=== PATIENT | male | born 1965 | race Caucasian/White ===

== ENCOUNTER 2024-06-18 08:56 | Emergency (ER) | payer BC ==
--- OUTSIDE RECORDS SUMMARY | 2024-06-18 09:00 | XMS REPORT | Continuity of Care Document ---
Author Name Unknown Address [address] [place] [address] [facility] Address [address] [place] [address] Care Team Providers Care Ledger Poster Name Role Phone Pcp, Patient Does Not Have A Primary Care Physic susanna DALTON DAMON Attending Clinician Unavailable Dalton Carter Attending Clinician [phone] Unknown, Attending Attending Clinician Unavailab annette Swan Attending Clinician Unavailable Carlos Attending Clinician Unavailable Nani Attending Clinician Unavailable Shawn Ott Attending Clinician [phone] Unknown, Attending Attending Clinician Unavailab SHAWN Johnson Attending Clinician Unavailab le Doctor Unassigned, [place] Attending Clinician U navailda Swan Admitting Clinician Unavailable Carlos Admitting Clinician Unavailable Nani Admitting Clinician Unavailable Payers Payer Name Policy Type Policy Number Effective Date Expirati on Date Source [place] OUT OF [place] [id number] 2006 00:00:00 [place] [id number] 2006 00:00:00 [place] [id number] 2006 00:00:00 Problems Condition Name Condition Details Condition Category Status Onset Date Resolution Date Last Treatment Date Treating Clinician Comments Source Multiple complicati ons due to type 2 diabetes mellitus Multiple Complicati ons Due to Type 2 Diabetes Mellitus Problem Active 10-31 00:00: 00 [facility] Colonoscop y declined Colonoscop y Declined Problem Active 10-31 00:00: 00 [facility] Allergies, Adverse Reactions, Alerts Allergy Name Allergy Type Status Severity Reaction(s) Onset Date Inactive Date Treating Clinician Comments Source NO KNOWN ALLERGIE S Drug Class Active [facility] Social History Social Habit Start Date Stop Date Quantity Comments Source [facility] identity [facility] Tobacco use and exposure 2023-05-03 00:00:00 2023-05-03 00:00:00 Smokeless tobacco non-user [facility] Alcohol intake 2023-05-03 00:00:00 2023-05-03 00:00:00 Lifetime non-drinker (finding) [facility] History of Social function 2023-05-03 00:00:00 2023-05-03 00:00:00 [facility] Alcoholic beverage intake 2023-05-03 00:00:00 2023-05-03 00:00:00 Lifetime non-drinker (finding) [facility] Sex assigned at 1965 00:00:00 1965 00:00:00 [facility] Smoking Status Start Date Stop Date Source Tobacco smoking consumption unknown [facility] Never smoked tobacco [facility] Medications Ordered Medication Name Filled Medication Name Start Date Stop Date Current Medication? Ordering Clinician Indication Dosage Frequency Signature (SIG) Comments Components Source cephALEXin 500 mg capsule 06-15 00:00: 00 06-26 04:59 :00 Yes [id number] 500mg Take 1 capsule by mouth 4 (four) times daily for 10 days. [facility] doxycycline hyclate 100 mg tablet 06-15 00:00: 00 06-26 04:59 :00 Yes [id number] 100mg Take 1 tablet by mouth in the morning and 1 tablet in the evening. Do all this for 10 days. [facility] amoxicillin 500 mg tablet 05-03 00:00: 00 05-14 04:59 :00 No [id number] 1000mg Take 2 tablets by mouth in the morning for 10 days. [facility] cholecalcif chicho (vitamin D3) 1,250 mcg (50,000 unit) capsule Take 1 capsule every week by oral route. cholecalcif chicho (vitamin D3) 1,250 mcg (50,000 unit) capsule Take 1 capsule every week by oral route. No cholecalci ferol (vitamin D3) 1,250 mcg (50,000 unit) capsule Take 1 capsule every week by oral route. [facility] glimepiride 4 mg tablet Take 1 tablet twice a day by oral route. glimepiride 4 mg tablet Take 1 tablet twice a day by oral route. No 1 BID glimepirid e 4 mg tablet Take 1 tablet twice a day by oral route. [facility] Humalog KwikPen (U-100) Insulin 100 unit/mL subcutaneou s Take sub q 20 units plus correction factor prior to meal tid TDD 60-75 units per day Humalog KwikPen (U-100) Insulin 100 unit/mL subcutaneou s Take sub q 20 units plus correction factor prior to meal tid TDD 60-75 units per day No Humalog KwikPen (U-100) Insulin 100 unit/mL subcutaneo us Take sub q 20 units plus correction factor prior to meal tid TDD 60-75 units per day [facility] lisinopril 20 mg tablet Take 1 tablet every day by oral route. lisinopril 20 mg tablet Take 1 tablet every day by oral route. No 1 Q1D lisinopril 20 mg tablet Take 1 tablet every day by oral route. [facility] metoprolol tartrate 50 mg tablet TAKE 1 TABLET BY MOUTH TWICE A DAY metoprolol tartrate 50 mg tablet TAKE 1 TABLET BY MOUTH TWICE A DAY No metoprolol tartrate 50 mg tablet TAKE 1 TABLET BY MOUTH TWICE A DAY [facility] [place] 3 [place] 3 No [place] 3 [facility] OneTouch Delica Lancets 30 gauge OneTouch Delica Lancets 30 gauge No OneTouch Delica Lancets 30 gauge [facility] OneTouch Delica Plus Lancet 33 gauge OneTouch Delica Plus Lancet 33 gauge No OneTouch Delica Plus Lancet 33 gauge [facility] OneTouch Ultra Blue Test Strip Take 1 strip twice a day by miscell. route. OneTouch Ultra Blue Test Strip Take 1 strip twice a day by miscell. route. No OneTouch Ultra Blue Test Strip Take 1 strip twice a day by miscell. route. [facility] OneTouch Ultra2 Meter OneTouch Ultra2 Meter No OneTouch Ultra2 Meter [facility] OneTouch Verio test strips for qid SBGM OneTouch Verio test strips for qid SBGM No OneTouch Verio test strips for qid SBGM [facility] simvastatin 20 mg tablet TAKE 1 TABLET DAILY AT BEDTIME simvastatin 20 mg tablet TAKE 1 TABLET DAILY AT BEDTIME No simvastati n 20 mg tablet TAKE 1 TABLET DAILY AT BEDTIME [facility] Synjardy XR 12.5 mg-1,000 mg tablet, extended release Take 2 tablets every day by oral route. Synjardy XR 12.5 mg-1,000 mg tablet, extended release Take 2 tablets every day by oral route. No 2 Q1D Synjardy XR 12.5 mg-1,000 mg tablet, extended release Take 2 tablets every day by oral route. [facility] Vitamin D Vitamin D No Vitamin D [facility] Xultophy 100/3.6 100 unit-3.6 mg/mL (3 mL) subcutaneou s insulin pen Xultophy 100/3.6 100 unit-3.6 mg/mL (3 mL) subcutaneou s insulin pen No Xultophy 100/3.6 100 unit-3.6 mg/mL (3 mL) subcutaneo us insulin pen [facility] Ozempic 1 mg/dose (4 mg/3 mL) subcutaneou s pen injector TAKE AFTER YOU COMPLETE THE SAMPLES AT LOWER DOSE. TAKE SUBCUTANEOU S 1 MG ONCE EVERY WEEK Ozempic 1 mg/dose (4 mg/3 mL) subcutaneou s pen injector TAKE AFTER YOU COMPLETE THE SAMPLES AT LOWER DOSE. TAKE SUBCUTANEOU S 1 MG ONCE EVERY WEEK No Ozempic 1 mg/dose (4 mg/3 mL) subcutaneo us pen injector TAKE AFTER YOU COMPLETE THE SAMPLES AT LOWER DOSE. TAKE SUBCUTANEO US 1 MG ONCE EVERY WEEK [facility] Tresiba FlexTouch U-200 insulin 200 unit/mL (3 mL) subcutaneou s pen Inject 42 units every day by subcutaneou s route. Tresiba FlexTouch U-200 insulin 200 unit/mL (3 mL) subcutaneou s pen Inject 42 units every day by subcutaneou s route. No 42unit( s) Q1D Tresiba FlexTouch U-200 insulin 200 unit/mL (3 mL) subcutaneo us pen Inject 42 units every day by subcutaneo us route. [facility] BD Zuleika 2nd Gen Pen Needle 32 gauge x 5/32" USE 2 TIMES PER DAY BD Zuleika 2nd Gen Pen Needle 32 gauge x 5/32" USE 2 TIMES PER DAY No BD Zuleika 2nd Gen Pen Needle 32 gauge x 5/32" USE 2 TIMES PER DAY [facility] Mounjaro 2.5 mg/0.5 mL subcutaneou s pen injector Inject 2.5 mg every week by subcutaneou s route as directed. Mounjaro 2.5 mg/0.5 mL subcutaneou s pen injector Inject 2.5 mg every week by subcutaneou s route as directed. No 2.5mg Q1W Mounjaro 2.5 mg/0.5 mL subcutaneo us pen injector Inject 2.5 mg every week by subcutaneo us route as directed. [facility] Immunizations Ordered Immunization Name Filled Immunization Name Date Status Comments Source Tdap Tdap Unknown Completed [facility] Vital Signs Vital Name Observation Time Observation Value Comments S ource Systolic blood pressure 2024-06-15 15:17:00 107 mm[Hg] [facility] Diastolic blood pressure 2024-06-15 15:17:00 71 mm[Hg] [facility] Heart rate 2024-06-15 15:17:00 66 /min [facility] Body temperature 2024-06-15 15:17:00 36.56 [place] [facility] Respiratory rate 2024-06-15 15:17:00 16 /min [facility] Body weight 2024-06-15 15:17:00 133[facility]358 [facility] BMI 2024-06-15 15:17:00 38.79 kg/m2 [facility] Oxygen saturation in Arterial blood by Pulse oximetry 2024-06-15 15:17:00 99 /min [facility] Height 2024-05-21 00:00:00 72 [in_i] [facility] BP Systolic 2024-05-21 00:00:00 127 mm[Hg] [facility] BP Diastolic 2024-05-21 00:00:00 84 mm[Hg] [facility] Body Weight 2024-05-21 00:00:00 296.4 [lb_av] [facility] BMI (Body Mass Index) 2024-05-21 00:00:00 40.2 kg/m2 [facility] Height 2023-12-26 00:00:00 72 [in_i] [facility] BMI (Body Mass Index) 2023-12-26 00:00:00 39.6 kg/m2 [facility] Body Weight 2023-12-26 00:00:00 292 [lb_av] [facility] BP Systolic 2023-12-26 00:00:00 118 mm[Hg] [facility] BP Diastolic 2023-12-26 00:00:00 72 mm[Hg] [facility] Body Weight 2023-08-22 00:00:00 286 [lb_av] [facility] BP Systolic 2023-08-22 00:00:00 126 mm[Hg] [facility] Height 2023-08-22 00:00:00 72 [in_i] [facility] BP Diastolic 2023-08-22 00:00:00 84 mm[Hg] [facility] BMI (Body Mass Index) 2023-08-22 00:00:00 38.8 kg/m2 [facility] Systolic blood pressure 2023-05-03 18:15:00 121 mm[Hg] [facility] Diastolic blood pressure 2023-05-03 18:15:00 79 mm[Hg] [facility] Heart rate 2023-05-03 18:15:00 64 /min [facility] Body temperature 2023-05-03 18:15:00 36.94 [place] [facility] Respiratory rate 2023-05-03 18:15:00 17 /min [facility] Body height 2023-05-03 18:15:00 185.4 cm [facility] Body weight 2023-05-03 18:15:00 130.999 kg [facility] BMI 2023-05-03 18:15:00 38.10 kg/m2 [facility] Oxygen saturation in Arterial blood by Pulse oximetry 2023-05-03 18:15:00 95 /min [facility] BP Diastolic 2023-04-04 00:00:00 78 mm[Hg] [facility] Height 2023-04-04 00:00:00 72 [in_i] [facility] BMI (Body Mass Index) 2023-04-04 00:00:00 38.5 kg/m2 [facility] BP Systolic 2023-04-04 00:00:00 138 mm[Hg] [facility] Body Weight 2023-04-04 00:00:00 284 [lb_av] [facility] BP Diastolic 2022-12-13 00:00:00 88 mm[Hg] [facility] Height 2022-12-13 00:00:00 72 [in_i] [facility] BMI (Body Mass Index) 2022-12-13 00:00:00 39.9 kg/m2 [facility] BP Systolic 2022-12-13 00:00:00 140 mm[Hg] [facility] Body Weight 2022-12-13 00:00:00 294 [lb_av] [facility] BP Diastolic 2022-08-10 00:00:00 80 mm[Hg] [facility] Height 2022-08-10 00:00:00 72 [in_i] [facility] BMI (Body Mass Index) 2022-08-10 00:00:00 38.5 kg/m2 [facility] BP Systolic 2022-08-10 00:00:00 130 mm[Hg] [facility] Body Weight 2022-08-10 00:00:00 284 [lb_av] [facility] BP Diastolic 2022-04-13 00:00:00 84 mm[Hg] [facility] Height 2022-04-13 00:00:00 72 [in_i] [facility] BMI (Body Mass Index) 2022-04-13 00:00:00 38.4 kg/m2 [facility] BP Systolic 2022-04-13 00:00:00 130 mm[Hg] [facility] Body Weight 2022-04-13 00:00:00 283 [lb_av] [facility] BP Diastolic 2021-08-31 00:00:00 84 mm[Hg] [facility] Height 2021-08-31 00:00:00 72 [in_i] [facility] BMI (Body Mass Index) 2021-08-31 00:00:00 38.8 kg/m2 [facility] BP Systolic 2021-08-31 00:00:00 126 mm[Hg] [facility] Body Weight 2021-08-31 00:00:00 286 [lb_av] [facility] BP Diastolic 2021-05-12 00:00:00 82 mm[Hg] [facility] Height 2021-05-12 00:00:00 72 [in_i] [facility] BMI (Body Mass Index) 2021-05-12 00:00:00 39.7 kg/m2 [facility] BP Systolic 2021-05-12 00:00:00 134 mm[Hg] [facility] Body Weight 2021-05-12 00:00:00 293 [lb_av] [facility] BP Diastolic 2021-01-19 00:00:00 78 mm[Hg] [facility] Height 2021-01-19 00:00:00 72 [in_i] [facility] BMI (Body Mass Index) 2021-01-19 00:00:00 39.2 kg/m2 [facility] BP Systolic 2021-01-19 00:00:00 118 mm[Hg] [facility] Body Weight 2021-01-19 00:00:00 289 [lb_av] [facility] BP Diastolic 2020-09-29 00:00:00 78 mm[Hg] [facility] Height 2020-09-29 00:00:00 72 [in_i] [facility] BMI (Body Mass Index) 2020-09-29 00:00:00 39.3 kg/m2 [facility] BP Systolic 2020-09-29 00:00:00 120 mm[Hg] [facility] Body Weight 2020-09-29 00:00:00 290 [lb_av] [facility] Height 2020-05-12 00:00:00 72 [in_i] [facility] BMI (Body Mass Index) 2020-05-12 00:00:00 39.5 kg/m2 [facility] Body Weight 2020-05-12 00:00:00 291.4 [lb_av] [facility] BP Diastolic 2020-01-07 00:00:00 72 mm[Hg] [facility] Height 2020-01-07 00:00:00 72 [in_i] [facility] BMI (Body Mass Index) 2020-01-07 00:00:00 39.1 kg/m2 [facility] BP Systolic 2020-01-07 00:00:00 118 mm[Hg] [facility] Body Weight 2020-01-07 00:00:00 288 [lb_av] [facility] BP Diastolic 2019-08-20 00:00:00 78 mm[Hg] [facility] Height 2019-08-20 00:00:00 72 [in_i] [facility] BMI (Body Mass Index) 2019-08-20 00:00:00 38 kg/m2 [facility] BP Systolic 2019-08-20 00:00:00 116 mm[Hg] [facility] Body Weight 2019-08-20 00:00:00 280.1 [lb_av] [facility] BP Diastolic 2019-04-30 00:00:00 82 mm[Hg] [facility] Height 2019-04-30 00:00:00 72 [in_i] [facility] BMI (Body Mass Index) 2019-04-30 00:00:00 38.4 kg/m2 [facility] BP Systolic 2019-04-30 00:00:00 122 mm[Hg] [facility] Body Weight 2019-04-30 00:00:00 283.3 [lb_av] [facility] BP Diastolic 2018-11-27 00:00:00 80 mm[Hg] [facility] Height 2018-11-27 00:00:00 72 [in_i] [facility] BMI (Body Mass Index) 2018-11-27 00:00:00 39.1 kg/m2 [facility] BP Systolic 2018-11-27 00:00:00 120 mm[Hg] [facility] Body Weight 2018-11-27 00:00:00 288 [lb_av] [facility] BP Diastolic 2018-11-06 00:00:00 80 mm[Hg] [facility] Height 2018-11-06 00:00:00 72 [in_i] [facility] BMI (Body Mass Index) 2018-11-06 00:00:00 39.1 kg/m2 [facility] BP Systolic 2018-11-06 00:00:00 124 mm[Hg] [facility] Body Weight 2018-11-06 00:00:00 288 [lb_av] [facility] Practice Procedures Procedure Date / Time Performed Performing Clinicia n Source POCT MOLECULAR STREP 2023-05-03 18:19:00 Unknown, [place] ASSIGNMENT OF BENEFITS 2023-05-03 18:07:59 Docto r Unassigned, [place] [facility] Encounters Start Date/Time End Date/Time Encounter Type Admission Type Attending [facility] Care Department Encounter ID Source 2024-06-15 09:40:00 2024-06-15 10:30:51 Outpatient R DALTON DAMON [facility] [id number] [facility] 2024-06-15 09:40:00 2024-06-15 10:30:51 Urgent Care Dalton Damon Unknown, Attending [facility] LUCERO ESPINOZA[facility] [id number] [facility] 2024-05-21 00:00:00 2024-05-21 00:00:00 Fernando Aguero MD: [id number] [facility], [address], [place] [address] , Ph. VFP [facility] - [place] - [facility] [id number] [facility] 2024-01-20 00:00:00 2024-01-20 00:00:00 Outpatient Siddiqi_Z_H OU_MD VFP VFP [id number] [facility] 2023-12-26 00:00:00 2023-12-26 00:00:00 Outpatient Carter_C_HO U_MD VFP VFP [id number] [facility] 2023-12-26 00:00:00 2023-12-26 00:00:00 Fernando Aguero MD: [id number] [facility], [address], [place] [id number] , Ph. [phone] VFP [facility] [place] [facility] [id number] [facility] 2023-12-23 00:00:00 2023-12-23 00:00:00 Outpatient Anderson_C_ DNU VFP VFP [id number] [facility] 2023-09-06 00:00:00 2023-09-06 00:00:00 Outpatient Carter_C_HO U_MD VFP VFP [id number] [facility] 2023-08-22 00:00:00 2023-08-22 00:00:00 Fernando Aguero MD: [id number] [facility], [address], [place] [id number] , Ph. [phone] VFP [facility] [place] [facility] [id number] [facility] 2023-05-03 13:00:00 2023-05-03 13:20:00 Urgent Care Shawn Dias, Attending [facility] LUCERO ESPINOZA[facility] [id number] [facility] 2023-05-03 13:00:00 2023-05-03 13:00:00 Outpatient R SHAWN DIAS [facility] [id number] [facility] 2023-05-03 00:00:00 2023-05-03 00:00:00 Orders Only Doctor Unassigned, [place] [facility] [id number] [facility] 2023-04-19 00:00:00 2023-04-19 00:00:00 Outpatient Carter_C_HO U_MD VFP VFP [id number] [facility] 2023-04-19 00:00:00 2023-04-19 00:00:00 Outpatient Carter_C_HO U_MD VFP VFP [id number] [facility] 2023-04-07 00:00:00 2023-04-07 00:00:00 Outpatient Carter_C_HO U_MD VFP VFP [id number] [facility] 2023-04-04 00:00:00 2023-04-04 00:00:00 Outpatient Carter_C_HO U_MD VFP VFP [id number] [facility] 2023-04-04 00:00:00 2023-04-04 00:00:00 Fernando Aguero MD: [id number] [address], [place] [address] , Ph. VFP [place] - [facility] - [place] [facility] [id number] [facility] 2023-01-01 00:00:00 2023-01-01 00:00:00 Outpatient Carter_C_HO U_MD VFP VFP [id number] [facility] 2022-12-13 00:00:00 2022-12-13 00:00:00 Outpatient Carter_C VFP VFP [id number] [facility] 2022-12-13 00:00:00 2022-12-13 00:00:00 Fernando Aguero MD: [id number], [address], [place] [address] , Ph. VFP [place] - [facility] - [place] - _Radha Medrano [id number] [facility] 2022-12-10 00:00:00 2022-12-10 00:00:00 Outpatient Anderson_C_ DNU VFP VFP [id number] [facility] 2022-12-10 00:00:00 2022-12-10 00:00:00 Outpatient Anderson_C_ DNU VFP VFP [id number] [facility] 2022-12-10 00:00:00 2022-12-10 00:00:00 Outpatient Anderson_C_ DNU VFP VFP [id number] [facility] 2022-12-10 00:00:00 2022-12-10 00:00:00 Outpatient Anderson_C_ DNU VFP VFP [id number] [facility] 2022-12-10 00:00:00 2022-12-10 00:00:00 Outpatient Anderson_C_ DNU VFP VFP [id number] [facility] 2022-12-10 00:00:00 2022-12-10 00:00:00 Outpatient Anderson_C_ DNU VFP VFP [id number] [facility] 2022-12-10 00:00:00 2022-12-10 00:00:00 Outpatient Anderson_C_ DNU VFP VFP [id number] [facility] 2022-12-10 00:00:00 2022-12-10 00:00:00 Outpatient Anderson_C_ DNU VFP VFP [id number] [facility] 2022-12-10 00:00:00 2022-12-10 00:00:00 Outpatient Anderson_C_ DNU VFP VFP [id number] [facility] 2022-12-10 00:00:00 2022-12-10 00:00:00 Outpatient Anderson_C_ DNU VFP VFP [id number] [facility] 2022-08-10 00:00:2022-08-10 00:00:00 Outpatient Anderson_C_ DNU VFP VFP [id number] [facility] 2022-08-10 00:00:00 2022-08-10 00:00:00 Outpatient Anderson_C_ DNU VFP VFP [id number] [facility] 2022-08-10 00:00:00 2022-08-10 00:00:00 Outpatient Anderson_C_ DNU VFP VFP [id number] [facility] 2022-08-10 00:00:00 2022-08-10 00:00:00 Outpatient Anderson_C_ DNU VFP VFP [id number] [facility] 2022-08-10 00:00:00 2022-08-10 00:00:00 Fernando gAuero MD: [id number] [facility], [address], [place] [address] , Ph. V[place] - [facility] - [place] [facility] [id number] [facility] 2022-04-13 00:00:00 2022-04-13 00:00:00 Fernando Aguero MD: [id number] [facility], [address], [place] [address] , Ph. Anderson_C_ DNU VFP [facility] [employer] [id number] [facility] 2021-12-23 09:08:00 2021-12-23 09:08:00 Outpatient Carter_C VFP VFP [id number] [facility] 2021-09-08 06:46:00 2021-09-08 06:46:00 Outpatient Anderson_C_ DNU VFP VFP [id number] [facility] 2021-08-31 00:00:00 2021-08-31 00:00:00 Fernando Aguero MD: [address] [facility], [address], [place] [address] , Ph. Carter_C VFP [place] - [facility] - [facility] [id number] [facility] 2021-05-16 08:53:00 2021-05-16 08:53:00 Outpatient Anderson_C_ DNU VFP VFP [id number] [facility] 2021-05-12 00:00:00 2021-05-12 00:00:00 Fernando Aguero MD: [id number] [facility] [address], [place] [address] , Ph. Carter_C VFP [place] - [facility] [place] [id number] [facility] 2021-02-04 01:33:00 2021-02-04 01:33:00 Outpatient Anderson_C VFP VFP [id number] [facility] 2021-01-24 08:08:00 2021-01-24 08:08:00 Outpatient Carter_C VFP VFP [id number] [facility] 2021-01-19 00:00:00 2021-01-19 00:00:00 Fernando Aguero MD: [id number] [facility], [address], [place] [address] , Ph. Anderson_C VFP [place] - [facility] - [facility] ([place] [address] [facility] 2020-10-01 01:37:00 2020-10-01 01:37:00 Outpatient Carter_C VFP VFP [id number] [facility] 2020-09-29 00:00:00 2020-09-29 00:00:00 Fernando Aguero MD: [id number] [facility], [address], [place] [address] , Ph. Anderson_C VFP [place] - [facility] - [facility] ([place] [address] [facility] 2020-05-24 01:27:00 2020-05-24 01:27:00 Outpatient Anderson_C VFP VFP [id number] [facility] 2020-05-13 04:52:2020-05-13 04:52:00 Outpatient Carter_C VFP VFP [id number] [facility] 2020-05-12 00:00:00 2020-05-12 00:00:00 Fernando Aguero MD: [id number] [facility] [address], [address], [place] [address] , Ph. Anderson_C VFP [place] - [facility] - [facility] ([place] [id number] [facility] 2020-05-09 05:17:00 2020-05-09 05:17:00 Outpatient Anderson_C VFP VFP [id number] [facility] 2020-03-28 12:30:00 2020-03-28 12:30:00 Outpatient Anderson_C VFP VFP [id number] [facility] 2020-01-29 01:31:00 2020-01-29 01:31:00 Outpatient Anderson_C VFP VFP [id number] [facility] 2020-01-16 10:47:00 2020-01-16 10:47:00 Outpatient Carter_C VFP VFP [id number] [facility] 2020-01-14 02:14:00 2020-01-14 02:14:00 Outpatient Carter_C VFP VFP [id number] [facility] 2020-01-07 00:00:00 2020-01-07 00:00:00 Fernando Aguero MD: [address] [facility] [address], [address], [place] [address] , Ph. Anderson_C VFP [place] - [facility] - [facility] ([place] [id number] [facility] 2019-08-23 02:56:00 2019-08-23 02:56:00 Outpatient Carter_C VFP VFP [id number] [facility] 2019-08-20 00:00:00 2019-08-20 00:00:00 Fernando Aguero MD: [id number] [facility] [address], [address], [place] [address] , Ph. VFP [place] - [facility] [id number] [facility] 2019-04-30 00:00:00 2019-04-30 00:00:00 Fernando Aguero MD: [address] [facility] [address], [address], [place] [address] , Ph. [facility] - [place] [id number] [facility] 2018-11-27 00:00:00 2018-11-27 00:00:00 Yasemin Schaeffer MD: [address], [address], [place] [address] , Ph. [facility] - [place] [id number] [facility] 2018-11-06 00:00:00 2018-11-06 00:00:00 Fernando Aguero MD: [address] [facility] [address], [address], [place] [address] , Ph. [facility] - [place] [id number] [facility] 2018-10-31 00:00:00 2018-10-31 00:00:00 Yasemin Schaeffer MD: [address], [address], [place] [address] , Ph. [facility] - [facility] [id number] [facility] Results Test Description Test Time Test Comments Results Result Co mments Source [facility] [Mass/volume] in Capillary [id number] 13:39:29* Test Item Value Reference Range Interpretation Comme nts Blood Glucose: mg/dl (test c ode = Blood Glucose: mg/dl) 138 [facility] [Mass/volume] in Capillary [id number] 16:03:52* Test Item Value Reference Range Interpretation Comme nts Blood Glucose: mg/dl (test c ode = Blood Glucose: mg/dl) 126 [facility] PracticePOCT MOLECULAR [id number] 18:23:39* Test Item Value Reference Range Interpretation Comme nts POCT Molecular Strep (test c ode = 43103-2) Positive Negative A Lab Interpretation (test cod e = 25263-1) Abnormal [facility] in Capillary blood 2023-04-04 14:30:55* Test Item Value Reference Range Interpretation Comme nts Blood Glucose: mg/dl (test c ode = Blood Glucose: mg/dl) 142 [facility] [Mass/volume] in Capillary [id number] 13:54:51* Test Item Value Reference Range Interpretation Comme nts Blood Glucose: mg/dl (test c ode = Blood Glucose: mg/dl) 120 [facility] [Mass/volume] in Capillary [id number] 11:35:40* Test Item Value Reference Range Interpretation Comme nts Blood Glucose: mg/dl (test c ode = Blood Glucose: mg/dl) 169 [facility] [Mass/volume] in Capillary [id number] 14:34:35* Test Item Value Reference Range Interpretation Comme nts Blood Glucose: mg/dl (test c ode = Blood Glucose: mg/dl) 111 [facility] Differential panel - [id number] 09:54:00 * Test Item Value Reference Range Interpretation Comme nts WBC (test code = WBC) 9.62 x10*3/?L 4.23-9.07 H RBC (test code = RBC) 5.34 10*12/L 4.63-6.08 hemoglobin (test code = hemoglobin) 17.00 g/dL 13.70-17.50 hematocrit (test code = hematocrit) 51.0 % 40.1-51.0 MCV (test code = MCV) 95.5 fL 80.0-100.0 MCH (test code = MCH) 31.8 pg 25.7-32.2 MCHC (test code = MCHC) 33.3 g/dL 32.3-36.5 RDW-SD (test code = RDW-SD) 44.4 fL 35.1-43.9 H platelet count (test code = platelet count) 269.0 k/uL 163.0-337.0 MPV (test code = MPV) 9.8 fL 7.5-11.5 neut% (test code = neut%) 63.9 % 34.0-67.9 lymph% (test code = lymph%) 26.5 % 21.8-53.1 mon% (test code = mon%) 8.7 % 5.3-12.2 eos% (test code = eos%) 0.7 % 0.8-7.0 L baso% (test code = baso%) 0.2 % 0.2-1.2 neut# (test code = neut#) 6.1 x10*3/?L 1.8-5.4 H lymph# (test code = lymph#) 2.6 x10*3/?L 1.3-3.6 mon# (test code = mon#) 0.8 x10*3/?L 0.3-0.8 eos# (test code = eos#) 0.07 x10*3/?L 0.04-0.54 baso# (test code = baso#) 0.02 x10*3/?L 0.01-0.08 [facility] - Serum or [id number] 08:22:00* Test Item Value Reference Range Interpretation Comme nts HDL (test code = HDL) 35 mg/dL 40-60 L triglyceride (test code = triglyceride) 88 mg/dL 0-149 VLDL calc. (test code = VLDL calc.) 18 mg/dL cholesterol/HDL ratio (test code = cholesterol/HDL ratio) 3.1 mg/dL non-HDL cholesterol calc. (t est code = non-HDL cholesterol calc.) 72 mg/dL 0-160 cholesterol (test code = cholesterol) 107 mg/dL 0-199 Cholesterol in LDL [Mass/vol ume] in Serum or Plasma (test code = 2089-1) 54 mg/dL 0-130 [facility] - Serum or Plasma 2018-10-31 18:16:00* Test Item Value Reference Range Interpretation Comme nts ALT (test code = ALT) 28 U/L 0-55 AST (test code = AST) 19 U/L 5-34 BUN (test code = BUN) 13.7 mg/dL 8.4-25.7 alk phos (test code = alk phos) 90 unit/L 40-150 glucose (test code = glucose) 136 mg/dL 70-99 H albumin (test code = albumin) 4.2 g/dL 3.5-5.0 creatinine (test code = creatinine) 0.94 mg/dL 0.72-1.25 eGFR non- (t est code = eGFR non-) >60 total bilirubin (test code = total bilirubin) 0.9 mg/dL 0.2-1.2 eGFR - (sheng t code = eGFR - ) >60 sodium (test code = sodium) 139 mEq/L 136-145 potassium (test code = potassium) 4.8 mEq/L 3.5-5.1 chloride (test code = chloride) 102 mmol/L 98-107 total protein (test code = t otal protein) 7.3 g/dL 6.4-8.3 calcium (test code = calcium) 10.0 mg/dL 8.4-10.2 CO2 (test code = CO2) 27.3 mmol/L 22.0-29.0 anion gap (test code = anion gap) 10 calc [facility], serum or [id number] 18:16:00* Test Item Value Reference Range Interpretation Comme [facility] PSA, total (test code = PSA, total) 0.21 NG/mL 0.00-4.00 [facility] A1c/Hemoglobin.total in [id number] 17:48:00* Test Item Value Reference Range Interpretation Comme nts Hemoglobin A1c/Hemoglobin.to bull in Blood (test code = 4548-4) 8.0 % 1.0-5.7 H average blood glucose (test code = average blood glucose) 183 mg/dL [facility]
[2024-06-18 09:44] LABS: Absolute Eosinophils 0.1 K/uL (0-0.5); Absolute Lymphocytes (CBC) 1.8 K/uL (0.7-4.9); Absolute Monocytes 1.5 K/uL (0.1-1.3); Absolute Neutrophil 10.8 K/uL (1.8-8.0); Basophils % 0.3 % (0-1.3); Eosinophils % 0.6 % (0-4.4); Hematocrit 44.3 % (39.6-49.0); Hemoglobin 14.8 g/dL (13.6-17.9); Lymphocytes % 12.8 % (15.3-44.8); MCH 32.1 pg (27.0-35.0); MCHC 33.4 g/dL (32.0-36.0); MPV 6.9 fL (7.6-11.3); Monocytes % 10.4 % (3.3-12.3); Neutrophils % 75.9 % (41.7-73.7); Platelets 325 thou/uL (152-406); RBC Red Blood Cell Count 4.62 M/uL (4.33-5.43); Red Cell Distribution Width 13.2 % (12.1-15.2)
[2024-06-18 10:04] LABS: ALT/SGPT 17 U/L (16-61); Albumin/Globulin Ratio 0.7 (1.1-1.8); Alkaline Phosphatase 84 U/L (45-117); Anion Gap 5.8 mEq/L (5.0-15.0); BUN Blood Urea Nitrogen 20 mg/dL (7-18); Bicarbonate 32 mEq/L (21-32); Bilirubin Total 0.6 mg/dL (0.2-1.0); Globulin 4.4 g/dL (2.3-3.5); Glomerular Filtration Rate 89 ml/min (=/>90); Glucose Level 119 mg/dL (74-106); Potassium 4.8 mEq/L (3.5-5.1); Protein, Total 7.4 g/dL (6.4-8.2); Sodium Level 137 mEq/L (136-145)
[2024-06-18 10:12] LABS: AST/SGOT < 10 U/L (15-37)
[2024-06-18] MEDS ORDERED: MORPHINE 4 MG/ML SYR ONE (10:44)
[2024-06-18] MEDS ORDERED: ONDANSETRON 4 MG/2 ML VIAL ONE (10:44)
--- NOTE | 2024-06-18 10:46 | RAD REPORT ---
EXAM DESCRIPTION: CT - Pelvis W/Cont - 06/18/2024 10:25 am CLINICAL HISTORY: r/o perirectal abscess COMPARISON: No comparisons TECHNIQUE: CT scan of the pelvis was obtained without IV contrast. All CT scans are performed using dose optimization technique as appropriate and may include automated exposure control or mA/KV adjus tment according to patient size. FINDINGS: 6 cm x 3.1 cm x 4 cm fluid collection at the left medial gluteal cleft which is partially loculated and most consistent with a developing abscess. Overlying skin thickening may represent cell ulitis. No definite involvement of the rectum or anus to suggest fistula. Partial ankylosis of the le ft SI joint. IMPRESSION: Left buttocks fluid collection measuring 6 cm in maximal dimension presumably represents a developing abscess. No evidence of a perianal or perirectal fistula though CT is less sensitive th an MRI for detecting/evaluating fistulas.
[2024-06-18] MEDS ORDERED: LIDOCAINE 2% W/EPI 1:200,000 MPF 20 ML VIAL IM ONE (10:54)
[2024-06-18] MEDS ORDERED: FENTANYL CITR 100 MCG/2 ML ONE (11:00)
--- NOTE | 2024-06-18 11:26 | EDPHYS ---
Physician Documentation [facility] Name: Raheel Llanes Age: 59 yrs Sex: Male : 1965 Arrival Date: 06/18/2024 Time: 08:56 Bed 6 Private MD: ED Physician Brandon Diallo HPI: 06/18 09:14 This 59 yrs old Male presents to ER via Unassigned with complaints of Abscess. rt 09:14 Patient presents to the ED with an abscess to the buttocks for about a week. Was rt started on doxycycline, Keflex by an urgent care on . States that has significantly worsened since then. Denies fever, chills, acute complaints, symptoms are moderate in severity, no other aggravating or elevating factors.. Historical: - Allergies: 09:21 No Known Allergies; dd2 - Home Meds: 09:49 lisinopril 20 mg Oral tablet 1 tab once for hypertension [Active]; metoprolol tartrate dd2 50 mg Oral tablet 2 times per day [Active]; glimepiride 4 mg Oral tablet 1 tab 2 times per day for type 2 diabetes mellitus [Active]; Synjardy 12.5-1,000 mg oral tablet 1 tab 2 times per day for type 2 diabetes mellitus [Active]; simvastatin 20 mg Oral tablet 1 tab daily [Active]; Humalog U-100 Insulin 100 unit/mL Sub-Q cartridge 15 units 3 times per day for type 2 diabetes mellitus [Active]; Tresiba U-100 Insulin 100 unit/mL subcutaneous solution 40 units daily [Active]; cephalexin 500 mg Oral capsule 1 cap 4 times per day [Active]; doxycycline hyclate 100 mg Oral capsule 1 cap 2 times per day [Active]; - PMHx: 09:21 Hypertensive disorder; Diabetes mellitus; Hypercholesterolemia; dd2 - Immunization history:: Adult Immunizations up to date. - Infectious Disease History:: Denies. - Family history:: not pertinent. - Social history:: Smoking status: Patient denies any tobacco usage or history of. ROS: 09:14 Constitutional: Negative for fever, chills, and weight loss, Cardiovascular: Negative rt for chest pain, palpitations, and edema, Respiratory: Negative for shortness of breath, cough, wheezing, and pleuritic chest pain, Abdomen/GI: Negative for abdominal pain, nausea, vomiting, diarrhea, and constipation, Neuro: Negative for headache, weakness, numbness, tingling, and seizure, 09:14 Skin: Positive for abscess, cellulitis, Exam: 09:14 Constitutional: This is a well developed, well nourished patient who is awake, alert, rt and in no acute distress. Head/Face: Normocephalic, atraumatic. Chest/axilla: Normal chest wall appearance and motion. Nontender with no deformity. No lesions are appreciated. Cardiovascular: Regular rate and rhythm with a normal S1 and S2. No gallops, murmurs, or rubs. Normal PMI, no JVD. No pulse deficits. Respiratory: Lungs have equal breath sounds bilaterally, clear to auscultation and percussion. No rales, rhonchi or wheezes noted. No increased work of breathing, no retractions or nasal flaring. Abdomen/GI: Soft, non-tender, with normal bowel sounds. No distension or tympany. No guarding or rebound. No evidence of tenderness throughout. MS/ Extremity: Pulses equal, no cyanosis. Neurovascular intact. Full, normal range of motion. Neuro: Awake and alert, GCS 15, oriented to person, place, time, and situation. Cranial nerves II-XII grossly intact. Motor strength 5/5 in all extremities. Sensory grossly intact. Cerebellar exam normal. Normal gait. 09:14 Skin: Abscess noted to the gluteal Cleft, mostly on the left side, somewhat crossing over midline. Fluctuance extends to the anal verge area of fluctuance is about 7 cm. Vital Signs: 09:17 BP 131 / 62; Pulse 75; Resp 16; Temp 97.7; Pulse Ox 98% ; dd2 10:36 BP 112 / 68; Pulse 71; Resp 17 S; Pulse Ox 97% on R/A; kc6 11:39 BP 120 / 70; Pulse 85; Resp 17 S; Pulse Ox 98% on R/A; kc6 Procedures: 11:36 I \T\ D: Incision and drainage was performed for an abscess of the left buttocks Prepped rt with Betadine, Anesthetized with ml's 2% Lidocaine with epinephrine. 2 ml's 2% Lidocaine with epinephrine. Incised with #11 blade. Drained large amount purulent fluid. Packed with iodoform gauze, Dressing: sterile 4x4 gauze, the patient tolerated the procedure well. MDM: 09:07 Patient medically screened. rt 11:36 Differential diagnosis: Cutaneous abscess, perirectal abscess, perianal abscess. Data rt reviewed: vital signs, nurses notes, lab test result(s), radiologic studies. I considered the following discharge prescriptions or medication management in the emergency department Medications were administered in the Emergency Department. See MAR. Independent interpretation of the following test(s) in the Emergency Department CT Scan: My interpretation is Abscess seen on my interpretation of CT scan images. Care significantly affected by the following chronic conditions: Diabetes. Counseling: I had a detailed discussion with the patient and/or guardian regarding the historical points, exam findings, and any diagnostic results supporting the discharge/admit diagnosis, lab results, radiology results, the need for outpatient follow up, to return to the emergency department if symptoms worsen or persist or if there are any questions or concerns that arise at home. Response to treatment: the patient's symptoms have markedly improved after treatment. 11:39 ED course: Patient is currently on Keflex, doxycycline prior to arrival, will continue rt with his antibiotic.. 06/18 09:13 Order name: CBC with Diff; Complete Time: 10:13 rt 06/18 09:13 Order name: CMP; Complete Time: 10:13 rt 06/18 09:13 Order name: CT Pelvis w cont; Complete Time: 10:46 rt 06/18 10:47 Order name: I\T\D Setup; Complete Time: 10:51 rt Administered Medications: 10:50 Drug: morphine IVP or IV 4 mg IVP once over 4 mins Route: IVP; Infused Over: 4 mins; kc6 Site: left antecubital; 10:50 Drug: Ondansetron IVP 4 mg IVP once; over 2 minutes Route: IVP; Site: left antecubital; [facility] 11:00 Drug: Lidocaine-Epinephrine Infiltration -2 % (1:100,000) 10 ml Infiltration once; to kc6 bedside Route: Infiltration; 11:00 Drug: fentaNYL (PF) IVP 50 mcg IVP once Route: IVP; Site: left antecubital; [facility] 11:39 Follow up: Response: No adverse reaction; Pain is unchanged, physician notified [facility] 11:39 Drug: Frederick PO 10 mg-325 mg 1 tabs PO once Route: PO; [facility] Disposition Summary: 06/18/24 11:26 Discharge Ordered Notes: Location: Home rt Problem: new rt Symptoms: have improved rt Condition: Stable rt Diagnosis - Cutaneous abscess to buttock rt Followup: rt - With: Private Physician - When: 5 - 6 days - Reason: Discharge Instructions: - Discharge Summary Sheet rt - Skin Abscess rt Forms: - Medication Reconciliation Form rt - Antibiotic Education rt - Prescription Opioid Use rt - Patient Portal Instructions rt - Leadership Thank You Letter rt Prescriptions: - acetaminophen-codeine 300-30 mg Oral tablet - take 1 tablet ORAL route every 6 hours as needed for pain; 15 tablet; Refills: rt 0, Product Selection Permitted Signatures: Dispatcher [employer] Kayla Cat RN RN kc6 Brandon Diallo MD MD rt MALAIKA ARCE RN RN dd2
--- NOTE | 2024-06-18 11:26 | ER ---
Nurse's Notes [facility] Name: Raheel Llanes Age: 59 yrs Sex: Male : 1965 Arrival Date: 06/18/2024 Time: 08:56 Bed 6 Private MD: Diagnosis: Cutaneous abscess to buttock Presentation: 06/18 09:17 Chief complaint: Patient states: Pt states developed an abscess on the Lt inner dd2 buttocks approx 1 week ago. States he went to Urgent care on Tuesday and received antibiotics and pain meds but it is getting worse. Coronavirus screen: At this time, the client does not indicate any symptoms associated with coronavirus-19. Ebola Screen: No symptoms or risks identified at this time. Initial Sepsis Screen: Does the patient meet any 2 criteria? No. Patient's initial sepsis screen is negative. Does the patient have a suspected source of infection? No. Patient's initial sepsis screen is negative. Risk Assessment: Do you want to hurt yourself or someone else? Patient reports no desire to harm self or others. Onset of symptoms is unknown. 09:17 Method Of Arrival: Ambulatory dd2 09:17 Acuity: NELLY 3 dd2 Triage Assessment: 09:21 General: Appears uncomfortable, Behavior is calm, cooperative. Pain: Complains of pain dd2 in gluteal cleft Pain currently is 3 out of 10 on a pain scale. Derm: Skin is intact, Skin is red, Skin temperature is warm Wound noted gluteal cleft Abscess located on gluteal cleft is golf ball sized, has no drainage, is hot to touch, is raised. Historical: - Allergies: 09:21 No Known Allergies; dd2 - Home Meds: 09:49 lisinopril 20 mg Oral tablet 1 tab once for hypertension [Active]; metoprolol tartrate dd2 50 mg Oral tablet 2 times per day [Active]; glimepiride 4 mg Oral tablet 1 tab 2 times per day for type 2 diabetes mellitus [Active]; Synjardy 12.5-1,000 mg oral tablet 1 tab 2 times per day for type 2 diabetes mellitus [Active]; simvastatin 20 mg Oral tablet 1 tab daily [Active]; Humalog U-100 Insulin 100 unit/mL Sub-Q cartridge 15 units 3 times per day for type 2 diabetes mellitus [Active]; Tresiba U-100 Insulin 100 unit/mL subcutaneous solution 40 units daily [Active]; cephalexin 500 mg Oral capsule 1 cap 4 times per day [Active]; doxycycline hyclate 100 mg Oral capsule 1 cap 2 times per day [Active]; - PMHx: 09:21 Hypertensive disorder; Diabetes mellitus; Hypercholesterolemia; dd2 - Immunization history:: Adult Immunizations up to date. - Infectious Disease History:: Denies. - Family history:: not pertinent. - Social history:: Smoking status: Patient denies any tobacco usage or history of. Screenin:25 [facility] ED Fall Risk Assessment (Adult) History of falling in the last 3 months, kc6 including since admission No falls in past 3 months (0 pts) Confusion or Disorientation No (0 pts) Intoxicated or Sedated No (0 pts) Impaired Gait No (0 pts) Mobility Assist Device Used No (0 pt) Altered Elimination No (0 pt) Score/Fall Risk Level 0 - 2 = Low Risk. Abuse screen: Denies threats or abuse. Denies injuries from another. Nutritional screening: No deficits noted. Tuberculosis screening: No symptoms or risk factors identified. Assessment: 09:34 General: Appears in no apparent distress. comfortable, obese, well groomed, well kc6 developed, Behavior is calm, cooperative, appropriate for age. Pain: Complains of pain in buttocks and gluteal cleft. Neuro: Level of Consciousness is awake, alert, obeys commands, Oriented to person, place, time, situation, Appropriate for age. Cardiovascular: Capillary refill < 3 seconds. Respiratory: Airway is patent Trachea midline Respiratory effort is even, unlabored, Respiratory pattern is regular, symmetrical. GI: No signs and/or symptoms were reported involving the gastrointestinal system. : No signs and/or symptoms were reported regarding the genitourinary system. EENT: No signs and/or symptoms were reported regarding the EENT system. Derm: Skin is healthy with good turgor, Skin is dry, Skin is normal, Skin temperature is warm Abscess located on gluteal cleft is quarter sized, has no drainage, is hot to touch, is red, is raised. Musculoskeletal: No signs and/or symptoms reported regarding the musculoskeletal system. Circulation, motion, and sensation intact. Capillary refill < 3 seconds, Range of motion: intact in all extremities. 10:36 Reassessment: Patient appears in no apparent distress at this time. No changes from kc6 previously documented assessment. Patient and/or family updated on plan of care and expected duration. Pain level reassessed. Patient is alert, oriented x 3, equal unlabored respirations, skin warm/dry/pink. 11:32 Reassessment: Patient appears in no apparent distress at this time. No changes from kc6 previously documented assessment. Patient and/or family updated on plan of care and expected duration. Pain level reassessed. Patient is alert, oriented x 3, equal unlabored respirations, skin warm/dry/pink. Vital Signs: 09:17 BP 131 / 62; Pulse 75; Resp 16; Temp 97.7; Pulse Ox 98% ; dd2 10:36 BP 112 / 68; Pulse 71; Resp 17 S; Pulse Ox 97% on R/A; kc6 11:39 BP 120 / 70; Pulse 85; Resp 17 S; Pulse Ox 98% on R/A; kc6 ED Course: 08:59 Patient arrived in ED. ra3 09:00 Brandon Diallo MD is Attending Physician. rt 09:16 Kayla Cooley, KASSI is Primary Nurse. kc6 09:21 Triage completed. dd2 09:21 Arm band placed on right wrist. Patient placed in an exam room, on a stretcher, on dd2 pulse oximetry. 09:24 Inserted saline lock: 20 gauge in left antecubital area, using aseptic technique. Blood kc6 collected. Flushed with 10 mL NS. Patient maintains SpO2 saturation greater than 95% on room air. 09:25 Patient has correct armband on for positive identification. Bed in low position. Call kc6 light in reach. Side rails up X 1. Adult w/ patient. Pulse ox on. NIBP on. Door closed. Noise minimized. Lights dimmed. Warm blanket given. Pillow given. 10:[address] via stretcher. kc6 10:26 CT Pelvis w cont In Process Unspecified. EDMS 11:00 Assist provider with I \T\ D: of an abscess on perianal Set up I\T\D tray. Performed by ezio [email or web address] Brandon Diallo MD Wound packed. iodoform gauze, Dressing with 4X4s, tape Patient tolerated well. 11:40 IV discontinued, intact, bleeding controlled, No redness/swelling at site. Pressure kc6 dressing applied. Administered Medications: 10:50 Drug: morphine IVP or IV 4 mg IVP once over 4 mins Route: IVP; Infused Over: 4 mins; kc6 Site: left antecubital; 10:50 Drug: Ondansetron IVP 4 mg IVP once; over 2 minutes Route: IVP; Site: left antecubital; kc6 11:00 Drug: Lidocaine-Epinephrine Infiltration -2 % (1:100,000) 10 ml Infiltration once; to kc6 bedside Route: Infiltration; 11:00 Drug: fentaNYL (PF) IVP 50 mcg IVP once Route: IVP; Site: left antecubital; kc6 11:39 Follow up: Response: No adverse reaction; Pain is unchanged, physician notified kc6 11:39 Drug: [place] PO 10 mg-325 mg 1 tabs PO once Route: PO; kc6 Medication: 11:40 VIS not applicable for this client. kc6 Outcome: 11:26 Discharge ordered by MD. rt 11:39 Discharged to home ambulatory, with significant other, kc6 11:39 Condition: good 11:39 Discharge instructions given to patient, significant other, Instructed on discharge instructions, follow up and referral plans. no drinking with medication, no driving heavy equipment, medication usage, wound care, Demonstrated understanding of instructions, follow-up care, medications, wound care, Prescriptions given X 1, 11:40 Patient left the ED. kc6 Signatures: Dispatcher [employer] Kayla Cat, RN RN kc6 Brandon Diallo MD MD rt [place], Ruby ra3 MALAIKA ARCE RN RN dd2
[2024-06-18] MEDS ORDERED: HYDROCODONE/APAP 10/325 TAB ONE (11:35)
[2024-06-18 11:45] VITALS: TEMP 97.7
[2024-06-18 11:48] VITALS: BP 120/70; O2SAT 98
== END 2024-06-18 11:40 | disposition home or self-care (01) ==
LOC: ER 08:56
DX: L02.31 Cutaneous abscess of buttock (principal); I10 Essential (primary) hypertension; E11.9 Type 2 diabetes mellitus without complications; Z79.4 Long term (current) use of insulin
CPT/HCPCS: 10060; 85025; 36415; 80053; 72193; 96375; 96374; 99285; Q9967; J3010; J2405